=== PATIENT | male | born 1990 | race Caucasian/White ===

== ENCOUNTER 2018-09-17 05:59 | Emergency (ER) | payer MEDICAID ==
[~2018-09-17] VITALS: Ht 175.3 cm; Wt 72.6 kg
[2018-09-17 06:05] VITALS: BP 124/77
--- NOTE | 2018-09-17 06:05 | NUR ---
DIANNA FRANCIS FOR PREBOOK.
--- NOTE | 2018-09-17 07:20 | NUR ---
PATIENT IN CHAIR E AWAKE ALERT ORIENTED . [employer] [employer] WITH PATIENT.
--- NOTE | 2018-09-17 07:42 | NUR ---
AWAITING FOR DISPOSITION
[2018-09-17 07:50] VITALS: BP 134/79
--- NOTE | 2018-09-17 07:50 | NUR ---
Patient discharged with v/s stable. Written and verbal after care instructions given and explained. Patient verbalized understanding. Police with in custody. All questions addressed prior to discharge. Advised to follow up with PMD.
--- NOTE | 2018-09-17 07:50 | NUR ---
DISCHARGE INSTRUCTIONS GIVEN TO DARLIN FRANCIS
== END 2018-09-17 07:50 ==
LOC: MED 05:59
DX: Z02.89 Encounter for other administrative examinations (principal)
CPT/HCPCS: 99283

== ENCOUNTER 2019-06-15 03:32 | Emergency (ER) | payer MEDICAID ==
[~2019-06-15] VITALS: Ht 175.3 cm; Wt 72.1 kg
[2019-06-15 03:33] VITALS: BP 117/80
--- NOTE | 2019-06-15 03:50 | NUR ---
PT AMBULATED TO BED 8 WITH STEADY GAIT.
--- NOTE | 2019-06-15 03:55 | NUR ---
PT 29 Y/O MALE BIB SELF FOR C/O GENERALIZED BODY ACHES 03/15. PT STATES,"IT'S AN ITCHY SORENESS ALL OVER. ALL MY BONES ARE SORE, I CAN'T TOUCH MYSELF." PT PRESENTS ALERT WITH PRESSURED SPEECH. PT ADMITS TO TAKING METH TODAY. "THE PAIN HAS BEEN GOING ON SINCE TAKING IT." PT RESPIRATIONS ARE EVEN AND UNLABORED. AFEBRILE. PT DENIES COUGH, N/V/D. PT RESTING IN BED EYES OPEN. BED LOCKED AND IN LOWEST POSITION. MEDHX: ASTHMA ALLERGIES: NKA
[2019-06-15 04:18] VITALS: BP 117/80
--- NOTE | 2019-06-15 04:18 | NUR ---
PT REFUSED TO SIGN DISCHARGE PAPERWORK.
--- NOTE | 2019-06-15 04:19 | NUR ---
Patient discharged with v/s stable. Written and verbal after care instructions REFUSED BY PT. Ambulatory with steady gait. All questions addressed prior to discharge. Advised to follow Up with PMD.
== END 2019-06-15 04:18 | disposition home or self-care (01) ==
LOC: MED 03:32
DX: F15.10 Other stimulant abuse, uncomplicated (principal); F10.10 Alcohol abuse, uncomplicated; F17.200 Nicotine dependence, unspecified, uncomplicated; Z88.5 Allergy status to narcotic agent
CPT/HCPCS: 99281

== ENCOUNTER 2019-07-20 14:44 | Emergency (ER) | payer MEDICAID ==
[~2019-07-20] VITALS: Ht 175.3 cm; Wt 70.3 kg
[2019-07-20 14:49] VITALS: BP 116/78
[2019-07-20] MEDS ORDERED: NACL 0.9% 1,000 ML IV ONE (14:55)
[2019-07-20] MEDS ORDERED: LORazepam 2 MG/ML VIAL IVP ONE (14:55)
--- NOTE | 2019-07-20 16:00 | NUR ---
DIANNA FRANCIS FOR PRE-BOOK. PT ENDORSES METH USE. PT APPEARS AGITATED. DR JI AT BEDSIDE.
--- NOTE | 2019-07-20 16:30 | NUR ---
IV removed, catheter intact and site benign. Applied folded 4x4 gauze and tape to stop bleeding.
[2019-07-20 16:32] VITALS: BP 116/78
--- NOTE | 2019-07-20 16:32 | NUR ---
PATIENT [facility] POLICE DEPT. PATIENT EXAMINED BY DR. JI. PATIENT MEDICALLY CLEARED AND RELEASED IN CUSTODY IN STABLE CONDITION. ORIGINAL PRE-BOOK FORM GIVEN TO OFFICER SAUL.
== END 2019-07-20 16:33 ==
LOC: MED 14:44
DX: F15.10 Other stimulant abuse, uncomplicated (principal); F11.90 Opioid use, unspecified, uncomplicated; J45.909 Unspecified asthma, uncomplicated; Z88.5 Allergy status to narcotic agent; Z02.89 Encounter for other administrative examinations
CPT/HCPCS: 96374; 99283; J2060; J7030

== ENCOUNTER 2021-05-10 23:40 | Emergency (ER) | payer MEDICAID ==
[~2021-05-10] VITALS: Ht 175.3 cm; Wt 77.1 kg
[2021-05-10 23:57] VITALS: BP 159/76
--- NOTE | 2021-05-11 00:19 | NUR ---
PT AMBULATED TO BED 7
--- NOTE | 2021-05-11 00:40 | NUR ---
PT'S BELONGINGS COLLECTED AND VERIFIED BY PAT STAFF
[2021-05-11 01:28] LABS: BASOPHILS % (AUTO) 0.4 % (0.0-2.0); EOSINOPHILS # (AUTO) 0.1 K/uL (0-0.4); EOSINOPHILS % (AUTO) 1.4 % (0.0-4.0); HEMATOCRIT 39.5 % (36-52); HEMOGLOBIN 13.5 g/dL (12.0-18.0); LYMPHOCYTES # (AUTO) 1.2 K/uL (2.0-11.5); LYMPHOCYTES % (AUTO) 28.2 % (20.5-51.1); MEAN CORPUSCULAR HEMOGLOBIN 30 pg (27-31); MEAN CORPUSCULAR HGB CONC 34 g/dL (33-37); MEAN CORPUSCULAR VOLUME 87.5 fL (80-94); MONOCYTES # (AUTO) 0.5 K/uL (0.8-1.0); MONOCYTES % (AUTO) 11.8 % (1.7-9.3); NEUTROPHILS # (AUTO) 2.4 K/uL (1.8-7.7); NEUTROPHILS % (AUTO) 58.2 % (42.2-75.2); PLATELET COUNT (AUTO) 255 K/uL (140-450); RED BLOOD CELL COUNT(AUTO) 4.51 MIL/uL (4.20-6.10); RED CELL DISTRIBUTION WIDTH 14.7 % (11.6-13.7); WHITE BLOOD COUNT (AUTO) 4.2 K/uL (4.8-10.8)
[2021-05-11 02:06] LABS: ALBUMIN 3.8 g/dL (3.4-5.0); ANION GAP 12.3 (8-16); ASPARTATE AMINOTRANSFERASE 90 U/L (15-37); CARBON DIOXIDE 27.7 mmol/L (21-32); CHLORIDE 105 mmol/L (98-107); CREATININE 0.9 mg/dL (0.6-1.3); GFR ARICAN-AMERICAN 127 mL/min (>90); GLUCOSE 115 mg/dL (74-106); SODIUM SERUM 141 mmol/L (136-145); TOTAL BILIRUBIN 0.4 mg/dL (0.0-1.0); UREA NITROGEN, BLOOD 15 mg/dL (7-18)
[2021-05-11 02:11] LABS: SALICYLATE < 2.8 mg/dL (2.8-20.0)
[2021-05-11 02:14] LABS: ACETAMINOPHEN < 0.5 ug/ml (10-30)
--- NOTE | 2021-05-11 02:20 | NUR ---
COLLECTED ESTEFANÍA AND NOVEL SWABS . WALKED OVER TO LAB
[2021-05-11 02:33] LABS: APPEARANCE,URINE CLEAR (CLEAR); BILIRUBIN,URINE 1+ (NEGATIVE); BLOOD, URINE NEGATIVE (NEGATIVE); COLOR,URINE YELLOW (YELLOW); LEUKOCYTE ESTERASE ,URINE NEGATIVE (NEGATIVE); NITRITE, URINE NEGATIVE (NEGATIVE); UGLUCOSE NEGATIVE (NEGATIVE)
[2021-05-11 03:00] LABS: BARBITURATE, URINE NEGATIVE ng/ml (NEG <=200); BENZODIAZEPINE, URINE NEGATIVE ng/mL (NEG <=200); CANNABINOID, URINE POSITIVE ng/mL (NEG <=50); COCAINE, URINE NEGATIVE ng/mL (NEG <=300); OPIATE, URINE NEGATIVE ng/mL (NEG <=2000); PHENCYCLIDINE SCREEN,URINE NEGATIVE ng/mL (NEG <=25)
--- NOTE | 2021-05-11 03:26 | NUR ---
31 Y/O MALE BIB SELF BY WALKING IN THE LOBBY. PT STATED HE HAD THOUGHTS OF ENDING HIS LIFE. PT STATES THAT LIFE HAS JUST BEEN ROUGH AND HE HAS BEEN FEELING DOWN. PT SAID HE HAS BEEN DEPRESSED ABOUT HIS LIVING SITUATIONS AND HEALTH. HE SAYS THAT THE THOUGHTS COME AND GO BUT HE CAME IN BECAUSE HE SAYS HE WANTED HELP. PT ALSO STATED HE THINKS THAT PARASITES ARE IN HIS BODY EATING AWAY AT HIM. PT STATED THAT THE SORES IN HIS BODY ARE DUE TO THE PARASITES EATING AWAY AND HE HAS NUMBNESS AND TINGLING TO HIS LOWER LEGS/ ANKLES. PT IS INTERESTED IN SEEKING HELP FOR HIS MENTAL HEALTH RELATED ISSUES. SOCIAL HX: LAST TIME HE SMOKED METH/ MARIJUANA WAS 4 DAYS AGO. PT HAS BEEN USING METH/ MARIJUANA SINCE HE WAS 15. PT HAS BEEN HOMELESS FOR THE PAST FOUR YEARS. HE HASNT SOUGHT OUT ALF. PT SMOKES CIGARETTES DAILY BUT RARELY DRFINK ALCOHOL.
--- NOTE | 2021-05-11 05:28 | NUR ---
PT SLEEPING IN BED . X2 SIDE RAILS UP
--- NOTE | 2021-05-11 07:21 | NUR ---
Pt report given to JAVIER. Transfer of care at this time.
--- NOTE | 2021-05-11 07:22 | NUR ---
31 years old male homeless with meth abuse presents to er with SI, quiet cooperative with care awaiting for tele psych.
--- NOTE | 2021-05-11 08:56 | NUR ---
PSYCHIATRIST TALKING TO PATIENT VIA TELE PSYCH DR FOX.
--- NOTE | 2021-05-11 11:08 | NUR ---
BOTH SWABS FOR COVID COLLECTED/SENT.
--- NOTE | 2021-05-11 14:10 | NUR ---
CLINICAL REPORT GIVEN TO ELIAS TRAN AT [facility].
--- NOTE | 2021-05-11 15:09 | NUR ---
REPORT GIVEN TO NURSE RICO AT [facility] [address] ALL QUESTIONS ANSWERED AWAITING FOR AMBULANCE TRANSFER.
[2021-05-11 15:53] VITALS: BP 126/76
--- NOTE | 2021-05-11 16:00 | NUR ---
[facility] AT BEDSIDE FOR TRANSPORT
--- NOTE | 2021-05-11 16:02 | NUR ---
PATIENT LEFT ER VIA [facility] TO [facility] FOR PSYCH TREATMENT ALERT, ORIENTED X4.
== END 2021-05-11 15:53 ==
LOC: MED 23:40
DX: R45.851 Suicidal ideations (principal); Z20.822 Contact with and (suspected) exposure to COVID-19; F20.9 Schizophrenia, unspecified; F32.9 Major depressive disorder, single episode, unspecified; F41.9 Anxiety disorder, unspecified; J45.909 Unspecified asthma, uncomplicated; F12.90 Cannabis use, unspecified, uncomplicated; F15.90 Other stimulant use, unspecified, uncomplicated; Z88.5 Allergy status to narcotic agent
CPT/HCPCS: 80053; 80305; 81003; 85025; 87426; 99285; G0480; G0482; U0003

== ENCOUNTER 2021-06-26 21:09 | Emergency (ER) | payer MEDICAID ==
[~2021-06-26] VITALS: Ht 180.3 cm; Wt 74.8 kg
[2021-06-26] MEDS ORDERED: LORazepam 2 MG/ML VIAL ONE (21:15)
[2021-06-26] MEDS ORDERED: diphenhydrAMINE 50 MG/ML VIAL IM ONE (21:15)
[2021-06-26] MEDS ORDERED: HALOPERIDOL IM 5 MG/ML VIAL IM ONE (21:15)
--- NOTE | 2021-06-26 21:16 | NUR ---
EMS GAVE TEMP OF 98.6 AND BP OF 140/84 HR 104
[2021-06-26] MEDS ORDERED: LORazepam 2 MG/ML VIAL IM ONE (21:20)
[2021-06-26 21:24] VITALS: BP 132/88
--- NOTE | 2021-06-26 21:28 | NUR ---
medicated with B52 on EMS gurney
[2021-06-27] MEDS ORDERED: AMMONIA AROMATIC 1 INHL INH ONE (05:53)
[2021-06-27 07:24] VITALS: BP 132/88
--- NOTE | 2021-06-27 07:24 | NUR ---
Patient discharged with v/s stable. Written and verbal after care instructions given and explained. Patient verbalized understanding. Ambulatory with steady gait. All questions addressed prior to discharge. Advised to follow up with PMD.
== END 2021-06-27 07:24 | disposition home or self-care (01) ==
LOC: MED 21:09
DX: R41.82 Altered mental status, unspecified (principal); F19.10 Other psychoactive substance abuse, uncomplicated; F12.90 Cannabis use, unspecified, uncomplicated; F15.90 Other stimulant use, unspecified, uncomplicated; J45.909 Unspecified asthma, uncomplicated; Z88.5 Allergy status to narcotic agent
CPT/HCPCS: 96372; 99284; J1200; J1630; J2060